=== PATIENT | female | born 1960 | race African-American/Black ===

== ENCOUNTER 2019-03-17 15:22 | Inpatient (IN) | payer MEDICARE, MEDICAID ==
[~2019-03-17] VITALS: Ht 167.6 cm; Wt 47.7 kg
[2019-03-17 18:28] LABS: BASOPHILS % 0.8 % (0.0-2.0); EOSINOPHILS % 0.9 % (0.0-5.0); HEMATOCRIT. 24.7 % (36.0-48.0); HEMOGLOBIN. 7.4 g/dL (12.0-16.0); LYMPHOCYTES % 18.4 % (20.0-50.0); MEAN CORPUSCULAR HEMOGLOBIN 17.7 pg (28.0-32.0); MEAN CORPUSCULAR VOLUME 58.8 fL (81.0-99.0); MEAN PLATELET VOLUME 6.7 fl (7.4-10.4); MONOCYTES % 8.5 % (2.0-8.0); NEUTROPHILS % 71.4 % (40.0-76.0); RED CELL DISTRIBUTION WIDTH 18.9 % (11.6-14.6)
[2019-03-17 18:31] LABS: INR 1.1; PROTHROMBIN TIME 11.4 sec (9.6-11.0)
[2019-03-17 18:32] LABS: CHLORIDE 97 mEq/L (98-107)
[2019-03-17 18:40] LABS: PLATELET 1068 x1000/uL (130-400)
[2019-03-17] MEDS ORDERED: SODIUM CHLORIDE 0.9% 1,000 ML IV SCH (19:00)
[2019-03-17] MEDS ORDERED: ACETAMINOPHEN 325MG TABLET PO ONE (19:00)
[2019-03-17 19:02] LABS: PLATELET ESTIMATE MARKEDLY INCREASED
[2019-03-17 19:27] LABS: TOTAL IRON BINDING CAPACITY 242 ug/dL (250-450)
[2019-03-17] MEDS ORDERED: IPRATROPIUM/ALBUTEROL 0.5-3(2.5)MG/3ML NEB NEB PRN (22:15)
[2019-03-17] MEDS ORDERED: MAGNESIUM/ALUMINUM HYDROXIDE/SIMETHICONE 30ML UDC PO PRN (22:15)
[2019-03-17] MEDS ORDERED: CLONIDINE 0.1MG TABLET PO PRN (22:15)
[2019-03-17] MEDS ORDERED: ONDANSETRON HCL 4MG/2ML INJ IV PRN (22:15)
[2019-03-17] MEDS ORDERED: DOCUSATE SODIUM 100MG CAPSULE PO PRN (22:15)
[2019-03-17 22:23] LABS: CLARITY URINE CLEAR (CLEAR); COLOR URINE YELLOW (YELLOW); KETONES URINE NEGATIVE (NEGATIVE); LEUKOCYTE ESTERASE URINE NEGATIVE (NEGATIVE); NITRITE URINE NEGATIVE (NEGATIVE); OCCULT BLOOD URINE NEGATIVE (NEGATIVE); PH URINE 5.5 (4.5-8.0); PROTEIN URINE NEGATIVE (NEGATIVE); SPECIFIC GRAVITY URINE 1.014 (1.005-1.030); UROBILINOGEN URINE 0.2 E.U./dL (0.2-1.0)
[2019-03-17 22:42] LABS: *AMPHETAMINES SCREEN URINE NEGATIVE (NEGATIVE); *BARBITURATES SCREEN URINE NEGATIVE (NEGATIVE); *BENZODIAZEPINES SCREEN URINE NEGATIVE (NEGATIVE); *COCAINE SCREEN URINE NEGATIVE (NEGATIVE)
[2019-03-17 22:43] LABS: CANNABINOID URINE SCREEN NEGATIVE (NEGATIVE); METHADONE URINE SCREEN NEGATIVE (NEGATIVE); OPIATES URINE SCREEN NEGATIVE (NEGATIVE); PHENCYCLIDINE URINE SCREEN NEGATIVE (NEGATIVE)
[2019-03-17 23:40] VITALS: BP 128/70
[2019-03-18] VITALS (11 sets, daily range): BP systolic 103–130; BP diastolic 57–70
[2019-03-18] MEDS ORDERED: LISI-604 PO (00:36)
[2019-03-18] MEDS ORDERED: GLIP10TA10 PO (00:36)
[2019-03-18] MEDS ORDERED: METF-416 PO (00:36)
[2019-03-18] MEDS ORDERED: ASPI-1158 PO (00:36)
[2019-03-18] MEDS ORDERED: hydrochlorothiazide PO (00:36)
[2019-03-18] MEDS ORDERED: LORA10TA7 PO (00:36)
[2019-03-18] MEDS ORDERED: CALC950T2 PO (00:36)
[2019-03-18] MEDS ORDERED: METO-539 PO (00:36)
[2019-03-18] MEDS: ACETAMINOPHEN 325MG TABLET PO PRN ×4 (02:38→22:46)
[2019-03-18 06:38] LABS: EOSINOPHILS % 0.5 % (0.0-5.0); LYMPHOCYTES % 16.1 % (20.0-50.0); MEAN CORPUSCULAR HEMOGLOBIN 18.1 pg (28.0-32.0); MEAN CORPUSCULAR VOLUME 58.1 fL (81.0-99.0); MEAN PLATELET VOLUME 6.5 fl (7.4-10.4); MONOCYTES % 9.4 % (2.0-8.0); PLATELET 802 x1000/uL (130-400); RED BLOOD CELL COUNT 3.54 mill/uL (4.2-5.4); RED CELL DISTRIBUTION WIDTH 19.1 % (11.6-14.6)
[2019-03-18 06:53] LABS: HEMOGLOBIN. 6.4 g/dL (12.0-16.0)
[2019-03-18 06:54] LABS: HEMATOCRIT. 20.6 % (36.0-48.0)
[2019-03-18] MEDS: FOLIC ACID 1MG TABLET PO SCH (09:03)
[2019-03-18 09:47] LABS: CHLORIDE 102 mEq/L (98-107)
[2019-03-18 10:02] LABS: LDL CHOLESTEROL 42 mg/dL (5-100)
[2019-03-18 10:03] LABS: CREATINE KINASE 21 IU/L (26-192)
[2019-03-18 10:04] LABS: HDL CHOLESTEROL 33 mg/dL (40-59)
[2019-03-18 10:07] LABS: CREATINE KINASE MB FRACTION < 1.0 ng/mL (0.5-3.6)
[2019-03-18 20:58] LABS: CREATINE KINASE 21 IU/L (26-192); HEMATOCRIT 24.4 % (36.0-48.0); HEMOGLOBIN 7.5 g/dL (12.0-16.0)
[2019-03-18 20:59] LABS: CREATINE KINASE MB FRACTION < 1.0 ng/mL (0.5-3.6)
[2019-03-19] VITALS: BP 123/69
[2019-03-19 04:00] VITALS: BP 126/83
[2019-03-19 08:00] VITALS: BP 134/45
[2019-03-19] MEDS: FOLIC ACID 1MG TABLET PO SCH (08:50)
[2019-03-19 12:00] VITALS: BP 116/70
[2019-03-19] MEDS: LORATADINE 10MG TABLET PO SCH (14:26)
[2019-03-19] MEDS: ASPIRIN 81MG EC TABLET PO SCH ×2 (14:26→21:01)
[2019-03-19] MEDS: HYDROCHLOROTHIAZIDE 25MG TABLET PO SCH (14:26)
[2019-03-19] MEDS: LISINOPRIL 20MG TABLET PO SCH (14:26)
[2019-03-19 16:00] VITALS: BP 129/62
[2019-03-19] MEDS: FERROUS SULFATE 325MG TABLET PO SCH (18:02)
[2019-03-19] MEDS: METFORMIN HCL 500MG TABLET PO SCH (18:02)
[2019-03-19] MEDS: GLIPIZIDE 10MG TABLET PO SCH (18:04)
[2019-03-19] MEDS: ACETAMINOPHEN 325MG TABLET PO PRN (18:06)
[2019-03-19 20:00] VITALS: BP 129/70
[2019-03-19] MEDS: METOPROLOL TARTRATE 50MG TABLET PO SCH (21:01)
[2019-03-20] VITALS: BP 129/74
[2019-03-20] MEDS: ACETAMINOPHEN 325MG TABLET PO PRN ×3 (00:11→12:59)
[2019-03-20 04:00] VITALS: BP 128/76
[2019-03-20] MEDS: GLIPIZIDE 10MG TABLET PO SCH ×2 (06:20→17:58)
[2019-03-20 06:58] LABS: CHLORIDE 102 mEq/L (98-107)
[2019-03-20 07:10] LABS: BASOPHILS % 1.1 % (0.0-2.0); EOSINOPHILS % 0.7 % (0.0-5.0); HEMATOCRIT. 28.5 % (36.0-48.0); HEMOGLOBIN. 8.5 g/dL (12.0-16.0); LYMPHOCYTES % 14.6 % (20.0-50.0); MEAN CORPUSCULAR HEMOGLOBIN 17.9 pg (28.0-32.0); MEAN CORPUSCULAR VOLUME 60.4 fL (81.0-99.0); MEAN PLATELET VOLUME 6.4 fl (7.4-10.4); MONOCYTES % 8.2 % (2.0-8.0); NEUTROPHILS % 75.4 % (40.0-76.0); PLATELET 904 x1000/uL (130-400); RED BLOOD CELL COUNT 4.72 mill/uL (4.2-5.4); RED CELL DISTRIBUTION WIDTH 19.2 % (11.6-14.6)
[2019-03-20 08:09] VITALS: BP 125/75
[2019-03-20] MEDS: METFORMIN HCL 500MG TABLET PO SCH ×2 (09:08→17:57)
[2019-03-20] MEDS: LORATADINE 10MG TABLET PO SCH (09:09)
[2019-03-20] MEDS: METOPROLOL TARTRATE 50MG TABLET PO SCH (09:09)
[2019-03-20] MEDS: FOLIC ACID 1MG TABLET PO SCH (09:09)
[2019-03-20] MEDS: ASPIRIN 81MG EC TABLET PO SCH (09:09)
[2019-03-20] MEDS: LISINOPRIL 20MG TABLET PO SCH (09:09)
[2019-03-20] MEDS: FERROUS SULFATE 325MG TABLET PO SCH ×3 (09:09→17:57)
[2019-03-20] MEDS: HYDROCHLOROTHIAZIDE 25MG TABLET PO SCH (09:09)
[2019-03-20 12:00] VITALS: BP 136/72
[2019-03-20] MEDS ORDERED: HYDROCODONE/ACETAMINOPHEN 5/325MG TABLET PO PRN (13:30)
[2019-03-20 16:00] VITALS: BP_SYST 105; BP_SYST 115; BP_DIAS 73
[2019-03-20 18:45] VITALS: BP 115/73
== END 2019-03-20 19:10 | disposition home or self-care (01) | DRG 809 ==
LOC: ER 15:22 → 7WST 19:56 → ENRESERV 22:29 → EDBEDREQ 22:52
PROVIDERS: ADMIT Internal Medicine; ATTEND Internal Medicine
PROC: 30233N1 Transfusion of Nonautologous Red Blood Cells into Peripheral Vein, Percutaneous Approach (ICD-10-PCS; principal; 2019-03-18)
DX: D61.818 Other pancytopenia (principal); R64 Cachexia; Z68.1 Body mass index [BMI] 19.9 or less, adult; E11.9 Type 2 diabetes mellitus without complications; E83.52 Hypercalcemia; C76.0 Malignant neoplasm of head, face and neck; I10 Essential (primary) hypertension; Z79.82 Long term (current) use of aspirin; Z79.84 Long term (current) use of oral hypoglycemic drugs; Z79.899 Other long term (current) drug therapy
CPT/HCPCS: 36415; 80048; 80061; 80305; 81003; 82550; 82553; 83540; 83550; 84443; 84484; 85014; 85018; 85025; 86850; 86900; 86920; 93005; 93970; 99285; P9016